=== PATIENT | male | born 1960 | race Caucasian/White ===

== ENCOUNTER → 2018-06-28 13:47 | Outpatient (CLI) | payer MEDICARE ==
[2011-08-22 06:29] VITALS: BMI 23.0
== END | disposition home or self-care (01) ==
LOC: D.MRI 13:47
DX: M25.512 Pain in left shoulder (principal)

== ENCOUNTER 2019-01-24 10:04 | Day surgery (SDC) | payer MEDICARE | END 2019-01-24 15:30 | disposition home or self-care (01) | LOC: D.OPS 10:04 | DX: Z12.11 Encounter for screening for malignant neoplasm of colon (principal); D12.5 Benign neoplasm of sigmoid colon; D12.3 Benign neoplasm of transverse colon ==

== ENCOUNTER 2019-01-31 09:15 | Day surgery (SDC) | payer MEDICARE, MEDICAID ==
[~2019-01-31] VITALS: Ht 180.3 cm; Wt 67.7 kg
[~2019-01-31 09:15] MED LIST: AUBAGIO14 MG PO; OXYBUTYNIN CHLOR5 MG PO
[2019-01-31] MEDS ORDERED: BACLOFEN20 M1 PO (12:19)
[2019-01-31 12:27] VITALS: BP 122/82; Ht 180.3 cm; Wt 67.7 kg
--- NOTE | 2019-01-31 13:43 | NUR ---
1315-RETURNED TO ROOM FROM GI LAB. ALERT. IV PATENT. RESP WITH EASE. 1330-DR ROBIN MENDOZA TO REPORT FINDINGS. 1335-FULL LIQUIDS SERVED.
--- NOTE | 2019-01-31 14:12 | NUR ---
1400-D/C HOME VIA PERSONAL WHEELCHAIR WITH FAMILY
--- NOTE | 2019-02-01 15:43 | OP ---
PATIENT NAME: ISABEL GALLOWAY MEDICAL RECORD: [id number] :62 LOCATION:[facility] ADMISSION DATE: SURGEON: BRIT KELLY DO DATE OF OPERATION: 01/31/2019 PROCEDURE: EGD with biopsies. INDICATIONS FOR PROCEDURE: Dysphagia and acid reflux. SCOPE: Olympus video gastroscope. MEDICATIONS: Propofol 200 mg IV per anesthesia. ESTIMATED BLOOD LOSS: Minimal. COMPLICATIONS: None. FINDINGS: Informed consent was given. The patient was made comfortable with the above medication. After reaching an adequate level of sedation by slow IV push, the patient was placed on his left side. The endoscope was advanced under direct visualization through the mouth to the second portion of the duodenum. The upper, middle, and lower thirds of the esophagus appeared normal. There were no strictures, webs, or rings located throughout the esophagus to dilate. At the GE junction, there was evidence of LA class A reflux-induced esophagitis. The endoscope was advanced beyond the GE junction into the stomach and retroflexed to view the cardia, where a small sliding hiatal hernia was present. The fundus appeared normal. As the endoscope was advanced through the stomach in the antrum and prepyloric regions, there were patchy areas of erythema and granularity consistent with possible gastritis. Random cold forceps biopsies were taken to submit for histopathology and to rule out the presence of H. pylori. The endoscope was advanced beyond the pylorus into the duodenum, which appeared normal down to the second portion. The endoscope was then withdrawn back into the esophagus and cold forceps biopsies were taken from the midesophagus prior to removal of the endoscope. The patient tolerated the procedure well and there were no complications. IMPRESSION: 1. LA class A reflux-induced esophagitis. 2. Small sliding hiatal hernia. 3. Gastritis. PLAN AND RECOMMENDATIONS: 1. Discharge home when recovery parameters are met. 2. Follow up biopsy specimen results. 3. GERD diet and reflux precautions. 4. Modified barium swallow with speech therapy regarding the oropharyngeal dysphagia symptoms. 5. Start Zantac 150 mg p.o. q.h.s. If this does not control reflux, consider changing to proton pump inhibitor therapy. TRANSINT:[id number] Voice Confirmation ID: [id number] DOCUMENT ID: [id number] OPERATIVE REPORT [id number] ISABEL GALLOWAY BRIT KELLY DO at 1543 CC: [id number] DICTATION DATE: 01/31/19 1307 HEEL DIPPER: 01/31/19 1425 [facility] 01/31/19 [id number] [place] [address]
== END 2019-01-31 14:00 | disposition home or self-care (01) ==
LOC: D.OPS 09:15
PROVIDERS: ATTEND Internal Medicine Gastroenterology
DX: R13.10 Dysphagia, unspecified (principal); K21.9 Gastro-esophageal reflux disease without esophagitis; Z01.812 Encounter for preprocedural laboratory examination

== ENCOUNTER → 2019-02-23 10:56 | Outpatient (CLI) | payer MEDICARE, MEDICAID ==
[2019-01-31 12:27] VITALS: BMI 20.8
[~2019-02-23 10:56] MED LIST changes: +BACLOFEN20 M1 PO
== END | disposition home or self-care (01) ==
LOC: D.CT 10:56
PROVIDERS: ATTEND Family Medicine
DX: I65.23 Occlusion and stenosis of bilateral carotid arteries (principal)

== ENCOUNTER 2019-04-21 08:57 | Emergency (ER) | payer MEDICARE, MEDICAID ==
[~2019-04-21] VITALS: Ht 180.3 cm; Wt 77.3 kg
[2019-04-21 08:59] VITALS: Ht 180.3 cm; Wt 77.3 kg
[2019-04-21] MEDS ORDERED: VESICARE5 MG PO (09:01)
[2019-04-21] MEDS ORDERED: ZANTAC300 MG PO (09:02)
[2019-04-21 11:05] VITALS: BP 143/96
== END 2019-04-21 11:06 | disposition other institution (70) ==
LOC: D.ER 08:57
DX: N48.30 Priapism, unspecified (principal); S30.21XA Contusion of penis, initial encounter; X58.XXXA Exposure to other specified factors, initial encounter; Y93.89 Activity, other specified; Y92.89 Other specified places as the place of occurrence of the external cause